=== PATIENT | male | born 1960 | race Caucasian/White ===

== ENCOUNTER 2025-03-24 15:42 | Emergency (ER) | payer BC, SELFPAY ==
--- OUTSIDE RECORDS SUMMARY | 2025-03-24 15:52 | XMS_ITS | Clinical Summary ---
Author Organization [facility] Address [address] [place] [address] Care Team Providers Care Public Speaking Coach Name Role Phone Unavailable Primary Care Provider Unavailabl e Allergies No known active allergies Medications meloxicam (MOBIC) 15 mg tabletIndication s:Osteoarthrosis , unspecified whether generalized or localized, lower leg Take 1 tablet by mouth once daily. WITH FOOD 30 tablet 1 11/21/2014 Active Social History Tobacco Use Types Packs/Day Years Used Date Smoking Tobacco: Never Assessed Sex and Gender Information Value Date Recorded Sex Assigned at Not on file Legal Sex Male 1:09 PM EST Gender Identity Not on file Sexual Orientation Not on file Plan of Treatment Health Maintenance Due Date Last Done Comments Anxiety Screening 1979 Depression Screening 1979 HIV Screening 1979 Hepatitis C Screening 1979 DTaP,Tdap,Td Vaccine (1 - Tdap) [address] Colonography 2006 Cologuard (FIT-DNA) 2006 Colonoscopy 2006 Colorectal Cancer Screening 2006 Diabetes Screening 2006 Fecal Occult Blood 2006 Prostate Cancer Screening Discussion 2006 Sigmoidoscopy 2006 Pneumococcal Vaccine: 50+ (1 of 1 - PCV) 2011 Shingrix Vaccine (1 of 2) 2011 Covid-19 Vaccine (1 - 2023- season) 2024 Influenza Vaccine (Season Ended) 2025 RSV Vaccine (1 - 1-dose 75+ series) 2036 Insurance [facility] PPO
--- OUTSIDE RECORDS SUMMARY | 2025-03-24 15:52 | XMS_ITS | Clinical Summary ---
Author Organization [facility] Address [address] [place] [address] Care Team Providers Care Strategic Sourcing Specialist Name Role Phone Unavailable Primary Care Provider Unavailabl e Social History Tobacco Use Types Packs/Day Years Used Date Smoking Tobacco: Never Assessed Sex and Gender Information Value Date Recorded Sex Assigned at Not on file Legal Sex Male 1:20 PM EST Gender Identity Not on file Sexual Orientation Not on file Plan of Treatment Not on file
[2025-03-24 15:53] VITALS: BP 114/80; PULSE 68; TEMP 36.5; O2SAT 99; BMI 25.5
[2025-03-24] MEDS: LIDOCAINE HCL 1% 100 MG/10 ML MDV INJ (16:17)
[2025-03-24] MEDS: ADACEL DIPH,PERTUSS(ACELL),TET VAC/PF 0.5 ML ADULT SYRINGE IM (16:17)
--- NOTE | 2025-03-24 18:25 | ED.WOUNDLAC1 ---
HPI - Wound/Laceration General Chief Complaint: Wound/Laceration Stated Complaint: LACERATION LEFT RING FINGER Time Seen by Provider: 03/24/25 16:05 Mode of arrival: walk-in History of Present Illness HPI narrative: Patient had a laceration to his left fourth finger while using a circular saw The patient is not up-to-date with his vaccinations regarding tetanus Related Data Allergies Allergy/AdvReac Type Severity Reaction Status Date / Time No Known Drug Allergies Allergy Verified 03/24/25 15:52 Review of Systems ROS Status of ROS 10 or more systems reviewed and unremarkable except as noted in history and below PFSH PFSH Social History Little interest or pleasure in doing things: not at all Feeling down, depressed, or hopeless: not at all Exam Narrative Exam Narrative: Nurses notes and vital signs reviewed and patient is not hypoxic. General: Well-appearing and in no apparent distress. Left hand: At the tip of the left fourth finger mostly at the palmar aspect at the distal phalanx and just almost 1 cm in half through the transverse distal phalanx, the patient have full range of movement there is no exposure of the underlying structure in the laceration is just going through the skin Constitutional Vital Signs, click to edit/add: Last Vital Signs Temp 97.7 F 03/24/25 15:53 Pulse 68 03/24/25 15:53 Resp 03/24/25 15:53 BP 114/80 03/24/25 15:53 Pulse Ox 99 03/24/25 15:53 O2 Del Method Room Air 03/24/25 15:53 Course Vital Signs Vital signs: Vital Signs Temperature 97.7 F 03/24/25 15:53 Pulse Rate 68 03/24/25 15:53 Respiratory Rate 20 03/24/25 15:53 Blood Pressure 114/80 03/24/25 15:53 Pulse Oximetry 99 03/24/25 15:53 Oxygen Delivery Method Room Air 03/24/25 15:53 Temperature 97.7 F 03/24/25 15:53 Pulse Rate 68 03/24/25 15:53 Respiratory Rate 03/24/25 15:53 Blood Pressure 114/80 03/24/25 15:53 Pulse Oximetry 99 03/24/25 15:53 Oxygen Delivery Method Room Air 03/24/25 15:53 MDM - Wound/Laceration MDM Narrative Medical decision making narrative: The patient provided with tetanus booster After cleaning the wound thoroughly the patient had the area infiltrated with 1% lidocaine almost 2 cc After that the patient had 5 4-0 Prolene stitches The patient instructed about the proper care of his laceration Stitches to be removed after 5 to 7 days The patient is to follow up with primary care physician in next 2-3 days or to return to the emergency department should any of the signs or symptoms worsen or new symptoms develop. The patient agrees with the following Diagnosis and Treatment plan and the patient will be discharged home. Discharge Plan Discharge Chief Complaint: Wound/Laceration Clinical Impression: Finger laceration Patient Disposition: Home, Self-Care Time of Disposition Decision: 17:02 Condition: Good Print Language: Urdu Instructions: Laceration (DC), Finger Laceration (ED) Additional Instructions: The stitches to be removed 5 to 7 days from now The laceration to be kept clean and dry Referrals: Elias Mora DO [Primary Care Provider, Internal Medicine] - 1 week Discharge Date/Time: 03/24/25 17:20
== END 2025-03-24 17:20 | disposition home or self-care (01) ==
PROVIDERS: Emergency Provider Emergency Medicine; PCP Internal Medicine
DX: S61.215A Laceration without foreign body of left ring finger without damage to nail, initial encounter (principal); W29.8XXA Contact with other powered hand tools and household machinery, initial encounter; Z23 Encounter for immunization
CPT/HCPCS: 12001; 90471; 90715; 99283

== ENCOUNTER 2025-06-23 09:09 | Outpatient (OUT) | payer BC, SELFPAY ==
--- OUTSIDE RECORDS SUMMARY | 2025-06-22 10:12 | XMS_ITS | Continuity of Care Document ---
Author Organization [facility] Address [address] [place] [address] Phone Care Team Providers Care Senior Financial Accountant Name Role Phone Morgan Elias BERG Primary Care Provider Elias Mora DO Attending Provider [phone] Care Teams Patient Care Team Team Status: Active Member Role Status Dates Elias Mora DO Primary Care Provider Active Patient Care Team Team Status: Inactive Member Role Status Dates Elias Mora DO Primary Care Provider Active Start: June 22, 2025 End: June 22, 2025 Elias Mora DO Attending Provider Active Sta rt: June 22, 2025 End: June 22, 2025 Chief Complaint and Reason for Visit Chief Complaint Admit Date Congestion/Sinus Infection/COVID- 2024 1:46pm Allergies, Adverse Reactions, Alerts Allergen Type Severity Reaction Last Updated Verified Status No Known Allergies Allergy Unknown 2024 1:49pm Yes Active Social History Smoking Status Status Start Date End Date Date of Observa tion Never smoked tobacco (finding) January 24, 2024 1:28pm Observation Status Observation Response Date of Response Legal Sex Male (finding) Sex Assigned At Male 1960 Problems Active Problems Medical Problem Onset Date Status Wellness examination Unknown Active Medications Medication Status Dose Units Route Directions Qty Days St art Date Stop Date End Date Instructions Adherence Amoxicillin -Pot Clavulanate 875-125 mg tablet Discont inued 1 TAB PO Twice daily 30 07January 24, 2024 12:00a m January 27, 2024 10:42 am Fluticasone Propionate (Flonase Allergy Relief) 50 mcg/actuati on spray,suspe nsion Discont inued 1 SPRAY INTRAN JOEY Twice daily January 24, 2024 12:00a m Jarad 2024 11:12 am administer into each nostril Cefdinir 300 mg capsule Discont inued 300 MG PO Twice daily 30 07January 27, 2024 12:00a m 2024 11:12 am Amoxicillin -Pot Clavulanate 875-125 mg tablet Discont inued 1 TAB PO Twice daily 2024 1:00am 2024 3:14p m Fluticasone Propionate 50 mcg/actuati on spray,suspe nsion Active 2 SPRAY INTRAN JOEY Daily 2024 1:00am administer into each nostril Complies with drug therapy Pseudoephed rine-Dm-Gua ifenesin (Capmist Dm) 60-15-400 mg tablet Discont inued 1 TAB PO Every 4 hours as needed for cold symptoms 2024 1:00am 2024 1:49p m do not exceed 4 doses per 24 hrs Azithromyci n 250 mg tablet Discont inued 250 MG PO .COMPLEX 6 2024 1:00am 2024 1:49p m 2 tabs on first day followed by 1 tab on days 2-5 Immunizations Immunization Event Date Not Given Reason Dose Number [employer] Lot Number Vaccine Information Statement (VIS) Detail Administration Location Shingles (Zoster) April 16, 2017 Vital Signs Vital Reading Result Reference Range Collection Date/Time Height 72 [in_i] June 22, 2025 1:53pm Weight 84.48 kg June 22, 2025 1:53pm Heart Rate 77 /min 60-100 June 22, 2025 1:53pm Respiratory rate 12 /min 12-June 112024 1:53pm BP Systolic 145 mm[Hg] 100-140 June 22, 2025 1:53pm BP Diastolic 90 mm[Hg] 60-100 June 22, 2025 1:53pm BMI (Body Mass Index) 25.2 kg/m2 2024 1:53pm Advance Directives Advance Directive Response Recorded Date/ Time Advance Directives No March 03 5:01pm Insurance Providers Guarantor Nayan Escamilla Address [address] [place] [phone] Contact Info. Home Phone: Payer Policy Id Subscriber's Name Subscriber Id Effectiv e Date Expiration Date [facility] [employer] [id number] Nayan Escamilla [id number] Encounters Encounter Location(s) Arrival/Admit Date Discharge/Depart Date Provider(s) Departed Physician/Prov ider Office Visit -[facility] June 22, 2025 1:46pm June 22, 2025 2:11pm Elias Mora DO Plan of Treatment Future Tests Future scheduled test information is unavailable Pending Tests Test Name Ordered Date Scheduled Date Comprehensive Metabolic Panel June 22 1:55pm Future Visits Future appointment information is unavailable Referrals to Other Providers Referral information is unavailable Future Procedures Procedure Name Ordered Date Scheduled Date Complete Blood Count Auto Diff June 22 1:55pm Lipid Panel June 22, 2025 1:55pm PSA Screen (Yearly Only) June 22, 2025 1: 55pm Future Medications Future medication information is unavailable Patient Instructions Patient instructions are unavailable
--- OUTSIDE RECORDS SUMMARY | 2025-06-23 09:14 | XMS_ITS | Clinical Summary ---
Author Organization [facility] Address [address] [place] [address] Care Team Providers Care Trade Show Manager Name Role Phone Elias Mora Primary Care Provider Allergies No known active allergies Medications triamcinolone (Kenalog) 0.1 % creamIndications :Rash and other nonspecific skin eruption Apply to affected areas, up to twice a day when flared, do not use one the face, groin, or underarms, 30 day supply 80 g 11 4 Active fluocinonide (Lidex) 0.05 % external solutionIndicati ons:Rash and other nonspecific skin eruption Apply to affected areas on the scalp, up to twice a day when flared, 30 day supply 60 mL 4 Active Active Problems No known active problems Family History Medical History Relation Name Comments Heart disease Father Hypertension Father Cancer Mother Relation Name Status Comments Father Mother Social History Tobacco Use Types Packs/Day Years Used Date Smoking Tobacco: Unknown Tobacco Cessation:Counseling Given: Yes Alcohol Use Standard Drinks/Week Comments Defer 0 (1 standard drink = 0.6 oz pur e alcohol) Sex and Gender Information Value Date Recorded Sex Assigned at Not on file Legal Sex Male 7:06 PM EDT Gender Identity Not on file Sexual Orientation Not on file Last Filed Vital Signs Vital Sign Reading Time Taken Comments Blood Pressure - - Pulse - - Temperature - - Respiratory Rate 16 12/08/2024 9:21 AM EST Oxygen Saturation - - Inhaled Oxygen Concentration - - Weight 83.9 kg (185 lb) 12/08/2024 9:21 AM EST Height 182.9 cm (6') 12/08/2024 9:21 AM EST Body Mass Index 25.09 12/08/2024 9:21 AM EST Plan of Treatment Not on file Insurance BC[employer] Care Teams Trade Show Manager Relationship Specialty Start Date End Date Elias Mora DO PCP - General Internal Medicine 10/18/24
--- OUTSIDE RECORDS SUMMARY | 2025-06-23 09:14 | XMS_ITS | Clinical Summary ---
Author Organization [facility] Address [address] [place] [address] Care Team Providers Care Portfolio Lead Name Role Phone Unavailable Primary Care Provider [...] 2011 Shingrix Vaccine (1 of 2) 2011 Influenza Vaccine (#1) 2025 RSV Vaccine (1 - 1-dose 75+ series) [address] [place] [address] [place] [address] PPO
--- OUTSIDE RECORDS SUMMARY | 2025-06-23 09:14 | XMS_ITS | Clinical Summary ---
Author Organization [facility] Address [address] [place] [address], [address] [place] [address] Care Team Providers Care Electric Plater Name Role Phone Unavailable Primary Care Provider [...]
[2025-06-23 09:31] LABS: Hematocrit 45.8 % (42.0-54.0); Hemoglobin 15.7 g/dL (14.0-18.0); Immature Granulocytes Abs Auto 0.03 10^3/uL (0.00-0.03); Immature Granulocytes Pct Auto 0.4 % (0.0-0.5); Lymphocytes Absolute Auto 2.9 10^3/uL (1.2-3.8); Mean Corpuscular HGB Conc 34.3 g/dL (29.9-35.2); Mean Corpuscular Hemoglobin 29.9 pg (25.9-34.0); Mean Corpuscular Volume 87.2 fL (80.0-94.0); Platelet Count 258 10^3/uL (150-450); Red Blood Count 5.25 10^6/uL (4.70-6.10); White Blood Count 7.2 10^3/uL (4.0-11.0)
[2025-06-23 10:05] LABS: Alanine Aminotransferase 65 U/L (16-63); Albumin Globulin Ratio 1.1; Albumin Level 3.8 g/dL (3.4-5.0); Alkaline Phosphatase 79 U/L (46-116); Anion Gap 12.8; Aspartate Amino Transferase 44 U/L (15-37); Blood Urea Nitrogen 31.0 mg/dL (7.0-18.0); Calcium 9.1 mg/dL (8.5-10.1); Carbon Dioxide 28.6 mmol/L (21.0-32.0); Chloride 105 mmol/L (98-107); Cholesterol 214 mg/dL (<=200); Estimated GFR (African America >60 (>=60 mL/min/1.73m^2); Estimated GFR (Non-African Ame >60 (>=60 mL/min/1.73m^2); Globulin 3.6 g/dL; Glucose 96 mg/dL (74-106); HDL Cholesterol 55 mg/dL (40-60); Potassium 4.4 mmol/L (3.5-5.1); Sodium 142 mmol/L (136-145); Total Protein 7.4 g/dL (6.4-8.2); Triglycerides 71 mg/dL (<=150); VLDL CHOLESTEROL 14.2 mg/dL
== END 2025-06-23 09:10 | disposition home or self-care (01) ==
PROVIDERS: PCP Internal Medicine; Visit Provider Internal Medicine
DX: Z00.00 Encounter for general adult medical examination without abnormal findings (principal); Z12.5 Encounter for screening for malignant neoplasm of prostate
CPT/HCPCS: 36415; 80053; 80061; 85025; G0103

== ENCOUNTER 2025-10-01 10:15 | Outpatient (OUT) | payer BC, SELFPAY ==
--- OUTSIDE RECORDS SUMMARY | 2025-10-01 10:17 | XMS_ITS | Clinical Summary ---
Author Organization [facility] Address [address] [place] [place] [address] Care Team Providers Care Mixing Machine Tender Cork Gasket Name Role Phone Elias Mora DO Primary Care Provider [phone] Allergies No known active allergies Medications No known medications Active Problems No known active problems Encounters DateTypeDepartmentCare JzfsQlhpmkerobd83/15/2025 2:00 PM EDTOffice Visit [facility] [address] [place] [address] Luca Henao PA Right elbow pain (Primary Dx); Biceps rupture, proximal, right, initial yzdgwymjf57/15/2025 11:30 AM EDT Ancillary Procedure [facility] [address] [place] [id number] 07/25/2025Travelfrom Last 3 Months Family History Medical HistoryRelationNameCommentsHeart diseaseFatherHypertensionFatherCancer MotherRelationNameStatusCommentsFatherDeceasedMotherDeceased Social History Tobacco UseTypesPacks/DayYears UsedDateSmoking Tobacco: Unknown Tobacco Cessation:Counseling Given: Yes Alcohol UseStandard Drinks/WeekCommentsDefer0 (1 standard drink = 0.6 oz pure alcohol)Sex and Gender InformationValueDate RecordedSex Assigned at BirthNot on fileLegal UusFqzu8312/23/2022 7:06 PM EDTGender IdentityNot on fileSexual OrientationNot on file Last Filed Vital Signs Vital SignReadingTime TakenCommentsBlood Pressure--Pulse--Temperature-- Respiratory Qfid634912/08/2024 9:21 AM ESTOxygen Saturation--Inhaled Oxygen Concentration--Ydfbtk20.9 kg (185 lb)07/25/2025 2:01 PM VYNFqgghb024.8 cm (5' 10 )07/25/2025 2:01 PM EDTBody Mass Index26.5407/25/2025 2:01 PM EDT Plan of Treatment Health MaintenanceDue DateLast DoneCommentsCT Gryeswcrmrxj1961olonoscopy 1961olorectal Cancer Dphgvsxnd1961FIT-DNA1961FIT1960 FOBT1960 9233Dbnpkeqshthra1961OVID-19 Vaccine ( season) /07/2022, 09/29/2021Influenza Vaccine (#1)2025Pneumococcal Vaccine: Pediatrics (0 to 5 Years) and At-Risk Patients (6 to 64 Years)Aged Out No longer eligible based on patient's age to complete this topic Procedures Procedure NamePriorityDate/TimeAssociated DiagnosisCommentsXR ELBOW 3+ VIEWS NSJHTXzlgbzz69/15/2025 11:27 AM EDT Right elbow pain from Last 3 Months Results * XR elbow 3+ views right (07/25/2025 11:27 AM EDT)Anatomical RegionLaterality ModalityUpper Extremities, ElbowRightRadiographic ImagingSpecimen (Source) Anatomical Location / LateralityCollection Method / VolumeCollection Time Received Time Narrative 07/25/2025 4:23 PM EDT Imaging Result: AP lateral and oblique of the right elbow taken in the office today demonstrating mild arthritic findings of the radial head and capitate but otherwise no evidence of acute fracture or subluxation noted. Authorizing ProviderResult TypeResult StatusTodd Lizzeth Henao PAIMG XR PROCEDURES Final Result from Last 3 Months Insurance Care Teams Team MemberRelationshipSpecialtyStart DateEnd Date Elias Mora DO [address] [facility] [place] [address] PCP - GeneralInternal Medicine10/18/24
--- OUTSIDE RECORDS SUMMARY | 2025-10-01 10:17 | XMS_ITS | Clinical Summary ---
Author Organization [facility] Address [address] [place] [address], [address] [place] [address] Care Team Providers Care Payroll Consultant Name Role Phone Unavailable Primary Care Provider Unavailabl e Social History Tobacco UseTypesPacks/DayYears UsedDateSmoking Tobacco: Never AssessedSex and Gender InformationValueDate RecordedSex Assigned at BirthNot on fileLegal Sex Male11/22/2012 1:20 PM ESTGender IdentityNot on fileSexual OrientationNot on file Plan of Treatment Not on file
--- OUTSIDE RECORDS SUMMARY | 2025-10-01 10:17 | XMS_ITS | Clinical Summary ---
Author Organization [facility] Address [address] [place] [address] Care Team Providers Care Pediatric Psychiatrist Name Role Phone Unavailable Primary Care Provider Unavailabl e Allergies No known active allergies Medications MedicationSigDispense QuantityRefillsLast FilledStart DateEnd DateStatus meloxicam (MOBIC) 15 mg tablet Indications:Osteoarthrosis, unspecified whether generalized or localized, lower legTake 1 tablet by mouth once daily. WITH FOOD 30 tablet ctive Social History Tobacco UseTypesPacks/DayYears UsedDateSmoking Tobacco: Never AssessedSex and Gender InformationValueDate RecordedSex Assigned at BirthNot on fileLegal Sex Male11/12/2014 1:09 PM ESTGender IdentityNot on fileSexual OrientationNot on file Plan of Treatment Health MaintenanceDue DateLast DoneCommentsAnxiety Tsnmkhmvt09/27/1979Depression Zvwttfubs01/27/1979HIV Jtbxyvvml76/27/1979Hepatitis C Rwqsjtuic91/27/1979 DTaP,Tdap,Td Vaccine (1 - Tdap)1980Lipid Smonzqirc19/27/1996CT Gpwwhcvaulof90/27/2006Cologuard (FIT-DNA)05/06/20065065Dxcmcvxilnq75/27/2006 Colorectal Cancer Rzmgaffgy74/27/2006Diabetes Eijapahsx92/27/2006Fecal Occult Blood2006Prostate Cancer Screening Fgdbrohijx91/27/2006Sigmoidoscopy 2006Pneumococcal Vaccine: 50+ (1 of 1 - PCV)2011Shingrix Vaccine (1 of 2)2011Covid-19 Vaccine (1 - 2024- season)2025Influenza Vaccine (#1)2025RSV Vaccine (1 - 1-dose 75+ series)2036 Insurance
[2025-10-01 11:15] LABS: Albumin Globulin Ratio 1.4; Albumin Level 4.3 g/dL (3.4-5.0); Alkaline Phosphatase 104 U/L (46-116); Aspartate Amino Transferase 31 U/L (15-37); Globulin 3.1 g/dL; Total Protein 7.4 g/dL (6.4-8.2)
[2025-10-01 11:27] LABS: Alanine Aminotransferase 44 U/L (16-63)
== END 2025-10-01 10:16 | disposition home or self-care (01) ==
LOC: LAB 10:15
PROVIDERS: PCP Internal Medicine; Visit Provider Internal Medicine
DX: R74.01 Elevation of levels of liver transaminase levels (principal)
CPT/HCPCS: 36415; 80076